=== PATIENT | female | born 1945 | race African-American/Black ===

== ENCOUNTER → 2017-10-01 | Outpatient (CLI) | payer OTHER ==
[~2017-10-01] MED LIST: ACETAMINOPHEN650 M1 PEG; ACIDOPHILUS1 EAC1 PEG; ALLOPURINOL300 MG PEG; AMLODIPINE BESY10 MG PEG; ASPIR 8181 MG PEG; ATIVAN0.5 MG PO; ATROVENT HFA12.9 GM; BISCOLAX10 MG PR; CALCIDOL8000 UNIT/ PEG; CEFEPIME-D1 GM/50 ML IVP; CHLORDIAZEPOXID25 MG PEG; CHLORDIAZEPOXIDE5 MG PEG; CLONIDINE HCL0.1 MG PEG; DIABETISOURCE PEG; ENULOSE10 GM/15 M PEG; EXCEDRIN EXTRA1 EAC1 PEG; FAMOTIDINE20 MG PEG; FLECTOR1 EACH TOP; HEPARIN SO5000 UNIT3 SQ; HUMULIN R100 UNIT/2; HYDRALAZINE HCL25 MG PO; IPRAT-ALBUT 0.5-3 ML INH; LORATADINE10 MG PEG; LORAZEPAM0.5 MG PO; MULTIVITAL PEG; NOVOLOG100 UNIT/1; POLYETHYLENE GL17 GM PO; PROMETHAZINE HC25 M1 PEG; SANTYL OINTMENT TOP; SIMETHICONE80 MG PEG; TRAZODONE HCL50 MG PO; TYLENOL WITH C1 EACH PO; ULTRAM 50MG50 MG PO; VANCOMYCIN HCL500 MG IV; ZOFRAN ODT4 MG PEG; [UNRECOGNIZED DRUG - REMARK]
[2017-10-09 12:15] LABS: ANION GAP 12.8 mmol/L (8-16); BLOOD UREA NITROGEN 28 mg/dL (7-26); BUN/CREATININE RATIO 47 (6-25); CALCIUM 9.5 mg/dL (8.4-10.2); CARBON DIOXIDE 22 mmol/L (22-29); CHLORIDE 108 mmol/L (98-107); EST GLOMERULAR FILTRATION RATE > 60 ML/MIN (60-); GLUCOSE 127 mg/dL (74-118); POTASSIUM 4.8 mmol/L (3.5-5.1); SODIUM 138 mmol/L (136-145)
[2017-10-09 12:16] LABS: BASOPHILS % 0.3 % (0.0-1.0); EOSINOPHILS # (AUTO) 0.7 (0.0-0.4); EOSINOPHILS % 8.6 % (0.0-6.0); HEMATOCRIT 35.3 % (34.2-44.1); HEMOGLOBIN 11.5 g/dL (12.0-16.0); LYMPHOCYTES # (AUTO) 2.9 (1.0-3.2); LYMPHOCYTES % 33.1 % (18.0-39.1); MEAN CORPUSCULAR HEMOGLOBIN 26.6 pg (28-32); MEAN CORPUSCULAR HGB CONC 32.6 g/dL (31-35); MEAN CORPUSCULAR VOLUME 81.7 fL (81-99); MONOCYTES # (AUTO) 0.4 (0.2-0.8); MONOCYTES % 4.5 % (4.4-11.3); NEUTROPHILS # (AUTO) 4.6 (2.1-6.9); NEUTROPHILS % 53.1 % (38.7-80.0); PLATELET COUNT 195 x10e3/uL (140-360); RED BLOOD COUNT 4.32 x10e6/uL (3.6-5.1); RED CELL DISTRIBUTION WIDTH 16.2 % (11.7-14.4)
== END ==
LOC: NPA 13:00
DX: R69 Illness, unspecified (principal)
CPT/HCPCS: 36415; 80048; 85025

== ENCOUNTER → 2017-11-12 | Outpatient (CLI) | payer OTHER ==
[~2017-11-12] MED LIST changes: +RISPERDAL1 MG PO; +SERTRALINE HCL50 MG PO; +ZYVOX600 MG PO
== END ==
LOC: NPA 10:18
DX: Z02.89 Encounter for other administrative examinations (principal)
CPT/HCPCS: 87071; 87186; 87205

== ENCOUNTER → 2017-11-17 | Outpatient (CLI) | payer OTHER ==
[2017-11-17 17:28] LABS: BASOPHILS # (AUTO) 0.1 (0.0-0.1); BASOPHILS % 0.4 % (0.0-1.0); EOSINOPHILS # (AUTO) 0.6 (0.0-0.4); EOSINOPHILS % 5.5 % (0.0-6.0); HEMATOCRIT 28.9 % (34.2-44.1); HEMOGLOBIN 8.9 g/dL (12.0-16.0); LYMPHOCYTES # (AUTO) 3.1 (1.0-3.2); LYMPHOCYTES % 28.1 % (18.0-39.1); MEAN CORPUSCULAR HEMOGLOBIN 25.9 pg (28-32); MEAN CORPUSCULAR HGB CONC 30.8 g/dL (31-35); MONOCYTES # (AUTO) 0.7 (0.2-0.8); MONOCYTES % 6.2 % (4.4-11.3); NEUTROPHILS # (AUTO) 6.6 (2.1-6.9); NEUTROPHILS % 59.4 % (38.7-80.0); PLATELET COUNT 260 x10e3/uL (140-360); RED BLOOD COUNT 3.44 x10e6/uL (3.6-5.1); RED CELL DISTRIBUTION WIDTH 17.1 % (11.7-14.4)
[2017-11-17 17:37] LABS: ANION GAP 12.3 mmol/L (8-16); BLOOD UREA NITROGEN 21 mg/dL (7-26); BUN/CREATININE RATIO 40 (6-25); CALCIUM 9.3 mg/dL (8.4-10.2); CARBON DIOXIDE 26 mmol/L (22-29); CHLORIDE 107 mmol/L (98-107); CREATININE, SERUM 0.52 mg/dL (0.57-1.11); EST GLOMERULAR FILTRATION RATE > 60 ML/MIN (60-); GLUCOSE 129 mg/dL (74-118); POTASSIUM 4.3 mmol/L (3.5-5.1); SODIUM 141 mmol/L (136-145)
== END ==
LOC: NPA 11:30
DX: Z02.89 Encounter for other administrative examinations (principal)
CPT/HCPCS: 36415; 80048; 85025

== ENCOUNTER 2017-11-19 07:50 | Emergency (ER) | payer MEDICARE, OTHER ==
[~2017-11-19] VITALS: Ht 170.2 cm; Wt 61.2 kg
[~2017-11-19 07:50] MED LIST changes: -RISPERDAL1 MG PO; -SERTRALINE HCL50 MG PO; -ZYVOX600 MG PO
--- OUTSIDE RECORDS SUMMARY | 2017-11-19 07:52 | XMS REPORT ---
[facility] Address Unknown Phone Unavailable Care Team Providers Care Catalogue Maker Name Role Phone ROXY ELIZABETH Unavailable Unavailable Problems This patient has no known problems. Allergies, Adverse Reactions, Alerts This patient has no known allergies or adverse reactions. Medications This patient has no known medications. Results Test Description Test Time Test Comments Text Results Atomic Results Result Comments CHEST SINGLE (PORTABLE) [facility] [address] [address] Patient Name: RONNIE HAQ MR #: [id number] : 1945 Age/Sex: 72/F Req #: [id number] Adm Physician: ROXY ELIZABETH MD Ordered by: AMIRA TONEY MD Report #: [id number] Location: ICU Room/Bed: ICU [facility] Procedure: [id number] DX/CHEST SINGLE (PORTABLE) Exam Date: 07/02/17 Exam Time: 1542 REPORT STATUS: Signed PROCEDURE: A single AP view of the chest. COMPARISON: [facility], DX, CHEST SINGLE (PORTABLE), 06/29/2017, 5:34. INDICATIONS: HYPOXIA FINDINGS: Lines/tubes: Tracheostomy tube in adequate position with the distal tip approximately 5.6 cm proximal to the johnson. Lungs: The right lung has reexpanded. Increased density in the mid to lower hemithorax bilaterally suggestive of consolidations as demonstrated on recent CT chest. Pleura: There is no pneumothorax. Bilateral pleural effusions. Heart and mediastinum: The heart and the mediastinum are unremarkable. Calcified left hilar lymph node. Bones: No acute bony abnormality. IMPRESSION: 1. Bilateral pleural effusions and bilateral lower lobe consolidations. 2. Interval reexpansion of the right lung. Tegan Ivy M.D. Dictated by: Tegan Ivy M.D. on 07/02/2017 at 15:56 Electronically approved by: Tegan Ivy M.D. on 07/02/2017 at 15: 56 Dictated By: MARTIN IVY MD, MD 55 Transcribed By: PAULO on 07/02/171555 COPY TO: AMIRA TONEY MD CT CHEST W [address] [place] [address] Patient Name: RONNIE HAQ MR #: [id number] : 1945 Age/Sex: 72/F Req #: [id number] Adm Physician: ROXY ELIZABETH MD Ordered by: QUYNH GA MD Report #: [id number] Location: ICU Room/Bed: [place] [address] Procedure: [id number] CT/CT CHEST W Exam Date: 06/30/17 Exam Time: 1620 REPORT STATUS: Signed PROCEDURE: CT scan of the chest abdomen and pelvis WITH intravenous contrast, using standard protocol. TECHNIQUE: The chest abdomen and pelvis was scanned utilizing a multidetector helical scanner from the lung apex through the level of the lesser trochanters after the IV administration of 100 cc of Isovue 370. Coronal and sagittal multiplanar reformations were obtained. COMPARISON: CT chest abdomen and pelvis 05/17/2017. INDICATIONS: PNEUMONIA, URINARY TRACT INFECTION, R/O OSTEOMYLITIS FINDINGS: Lines/ tubes: A tracheostomy tube tip terminates in the upper trachea. Balloon retention gastrostomy catheter terminates within the gastric body.. Lungs and Airways: Groundglass opacities with diffuse tree in bud nodules within the anterior right upper lobe. Groundglass opacities and consolidations within the lower lobes, left greater than right. small bilateral pleural effusions, left larger than right. Pleura: Small bilateral pleural effusions, left larger than right, without pleural enhancement. Heart and mediastinum: No focal thyroid abnormality. Atherosclerotic calcification of the aortic arch and great vessel origins without ectasia or aneurysmal dilatation. Pulmonary outflow tract is of normal caliber. This study was not optimized for detection of pulmonary embolic disease; however, the main pulmonary artery, proximal right and left pulmonary arteries are patent, without filling defect. No axillary or mediastinal lymphadenopathy. There are multiple enlarged right hilar nodes, without significant interval change relative to 05/17/2017. Soft tissues: No focal soft tissue abnormalities of the chest. Abdomen: Liver: No focal hepatic lesion or intrahepatic biliary ductal dilatation. The gallbladder is normal. Spleen: Calcified granuloma. No splenomegaly. Pancreas: No focal mass or ductal dilatation. Adrenal glands: No nodules. Kidneys: Symmetric renal parenchymal enhancement. Subcentimeter hypoattenuating lesions in the right kidney left kidney, too small to further characterize though likely represent small cysts. No calculi or hydronephrosis. Pelvic organs: The urinary bladder is collapsed around a Pierre catheter. The uterus is not identified and has presumably been removed. The pelvic contents are otherwise poorly evaluated secondary to extensive streak artifact from right hip prosthesis. GI tract: Rectal tube is in place. The sigmoid colon and rectum are poorly evaluated secondary to streak artifact. The large bowel otherwise shows no distention or wall thickening. The appendix is poorly visualized. Gastrostomy catheter terminates within the gastric body. There is no small bowel dilatation to suggest obstruction. Lymph nodes: No pelvic sidewall, retroperitoneal, or mesenteric lymphadenopathy. Blood vessels: Extensive aortoiliac atherosclerotic calcification without aneurysmal dilatation. Portal vein, splenic vein, and central superior mesenteric vein are patent. Peritoneum/ retroperitoneum: No pneumoperitoneum. Small gas focus along the left rectus musculature is of uncertain etiology and may relate to subcutaneous medication administration. No ascites. Bones: Chronic erosive changes of the low sacrum and coccyx with overlying decubitus ulcer. The bones are diffusely osteopenic. 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 Status post total right hip replacement with unchanged position of surgical hardware. Advanced multilevel degenerative disc changes of the lumbar spine. No osseous destructive lesions. IMPRESSION: Bilateral lower lobe consolidation likely related to aspiration with associated small parapneumonic effusions, left greater than right. Groundglass and tree in bud opacities in the right upper lobe are also presumably related to aspiration. 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 Atherosclerotic vascular disease. Dictated by: Homer Raymond M.D. on 06/30/2017 at 17:09 Electronically approved by: Homer Raymond M.D. on 06/30/2017 at 17:09 Dictated By: HOMER RAYMOND MD 08 Transcribed By: PAULO on 06/30/171708 COPY TO: QUYNH GA MD CT ABDOMEN/PELVIS W [place] [address] Patient Name: RONNIE HAQ MR #: [id number] : 1945 Age/Sex: 72/F Req #: [id number] Adm Physician: ROXY ELIZABETH MD Ordered by: QUYNH GA MD Report #: [id number] Location: ICU Room/Bed: ICU [facility] Procedure: CT/CT ABDOMEN/PELVIS W Exam Date: 06/30/17 Exam Time: 1620 REPORT STATUS: Signed PROCEDURE: CT ABDOMEN AND PELVIS WITH CONTRAST INDICATIONS: PNEUMONIA, URINARY TRACT INFECTION, R/O OSTEOMYLITIS FINDINGS: See impression IMPRESSION: For full dictated report refer to the examination "CT CHEST W." also from 06/30/2017. Dictated by: Homer Raymond M.D. on 06/30/2017 at 17:20 Electronically approved by: Homer Raymond M.D. on 06/30/2017 at 17:20 Dictated By: HOMER RAYMOND MD 19 Transcribed By: PAULO on 06/30/17 172 COPY TO: QUYNH GA MD CHEST SINGLE (PORTABLE) [place] [address] Patient Name: RONNIE HAQ MR #: [id number] : 1945 Age/Sex: 72/F Req #: [id number] Adm Physician: ROXY ELIZABETH MD Ordered by: TONY JAMESON MD Report #: [id number] Location: ICU Room/Bed: [place] [address] _ Procedure: [id number] DX/CHEST SINGLE (PORTABLE) Exam Date : 06/30/17 Exam Time: 0510 REPORT STATUS: Signed EXAM: CHEST SINGLE (PORTABLE), AP 1 view DATE: 06/30/2017 5:00 AM Time stamp on exam: 0522 hours INDICATION: Pneumonia COMPARISON: AP view of the chest June 29, 2017 FINDINGS: LINES/TUBES: None LUNGS: There is no longer opacification of the right lung. Bibasilar atelectasis. PLEURA: Small bilateral pleural effusions. HEART AND MEDIASTINUM: The heart is within normal size limits. Prominent central pulmonary vessels. BONES AND SOFT TISSUES: No acute findings. IMPRESSION: Interval aeration of the right lung. Small bilateral pleural effusions. Signed by: Dr. Dallas Gracia M.D. on 06/30/2017 6:53 AM Dictated By: DALLAS GRACIA MD 2 Transcribed By: SAHIL on 06/30/17652 COPY TO: TONY JAMESON MD CHEST SINGLE (PORTABLE) [place] [address] Patient Name: RONNIE HAQ MR #: [id number] : 1945 Age/Sex: 72/F Req #: [id number] Adm Physician: ROXY ELIZABETH MD Ordered by: TONY JAMESON MD Report #: [id number] Location: ICU Room/Bed: [place] [address] _ Procedure: [id number] DX/CHEST SINGLE (PORTABLE) Exam Date : 06/29/17 Exam Time: 0505 REPORT STATUS: Signed EXAM: CHEST SINGLE (PORTABLE), AP 1 view DATE: 06/29/2017 5:00 AM Time stamp on exam: 0534 hours INDICATION: Pneumonia COMPARISON: AP view of the chest June 27, 2017 FINDINGS: LINES/TUBES: Stable tracheostomy LUNGS: Interval complete opacification of the right lung. Left lower lobe atelectasis. PLEURA: Small left pleural effusion. HEART AND MEDIASTINUM: Deviation to the right BONES AND SOFT TISSUES: No acute findings. IMPRESSION: Interval complete opacification of the right lung , likely secondary to central mucous plug or aspiration Signed by: Dr. Dallas Gracia M.D. on 06/29/2017 6:43 AM Dictated By: DALLAS GRACIA MD 2 Transcribed By: SAHIL on 06/29/17642 COPY TO: TONY JAMESON MD US CHEST (INCL MEDIASTINUM) [place] [address] Patient Name: RONNIE HAQ MR #: [id number] : 1945 Age/Sex: 72/F Req #: [id number] Adm Physician: ROXY ELIZABETH MD Ordered by: AMIRA TONEY MD Report #: [id number] Location: ICU Room/Bed: [place] [address] Procedure: [id number] US/US CHEST (INCL MEDIASTINUM) Exam Date: 06/28/17 Exam Time: 1127 REPORT STATUS: Signed EXAM: US CHEST (INCL MEDIASTINUM) INDICATION: S pleural effusion COMPARISON: CT abdomen and pelvis 05/17/2017 TECHNIQUE: Transverse and sagittal images were performed of the bilateral chest. FINDINGS: Mild left pleural effusion. No right pleural effusion. IMPRESSION: 1. Mild left pleural effusion. 2. No right pleural effusion. Signed by: Dr. Aly Silver M.D. on 06/28/2017 12:30 PM Dictated By: ALY SILVER MD 1230 Transcribed By: SAHIL on 06/28/17 123 COPY TO: AMIRA TONEY MD CHEST SINGLE (PORTABLE) [place] [address] Patient Name: RONNIE HAQ MR #: [id number] : 1945 Age/Sex: 72/F Req #: [id number] [facility] Physician: Ordered by: RUBEN VELEZ MD Report #: [id number] Location: ER Room/Bed: Procedure: [id number] DX/CHEST SINGLE (PORTABLE) Exam Date: 06/27/17 Exam Time: 1420 REPORT STATUS: Signed PROCEDURE: CHEST SINGLE (PORTABLE) COMPARISON: CT chest 05/17/17, chest x-ray 05/15/17 INDICATIONS: PNEUMONIA, PLEURAL EFFUSION FINDINGS: LINES AND TUBES: Tracheostomy tube stable in position. A right PICC line has been removed. LUNGS: Chronic atelectasis of the right lung is re- demonstrated with blunting of the lateral costophrenic angle suggestive of associated pleural effusion. The amount of airspace disease in the right upper lobe has increased. Haziness of the left lung base is similar suggestive of pleural effusion and atelectasis. Aerated lung shows no evidence of infiltrate. CARDIAC: Top normal in size and stable. MEDIASTINUM: Normal. PLEURA: No pneumothorax. BONES: No focal osseous lesions. Chronic elevation of the right shoulder is stable. There are stable degenerative changes of the left shoulder. OTHER: Negative. CONCLUSION: 1. Chronic bibasilar atelectasis, right lung greater than left, with bilateral pleural effusions. 2. Increasing airspace disease in the right upper lobe could be due to atelectasis or pneumonia. 3. Stable tracheostomy tube. Dictated by: Farshad Narayanan M.D. on 06/27/2017 at 14:50 Electronically approved by: Farshad Narayanan M.D. on 06/27/2017 at 14:50 Dictated By: FARSAHD NARAYANAN MD 1450 Transcribed By : PAULO on 06/27/17 1450 COPY TO: RUBEN VELEZ MD
[2017-11-19] MEDS ORDERED: CEFEPIME-D1 GM/50 ML IVP (08:33)
[2017-11-19] MEDS ORDERED: ZYVOX600 MG PO (08:33)
[2017-11-19] MEDS ORDERED: RISPERDAL1 MG PO (08:33)
[2017-11-19] MEDS ORDERED: NOVOLOG100 UNIT/1 (08:33)
[2017-11-19] MEDS ORDERED: SERTRALINE HCL50 MG PO (08:33)
[2017-11-19] MEDS ORDERED: DIATRIZOATE MEGL/DIATRIZOA SOD 30 ML BTL PO ONE (09:07)
--- NOTE | 2017-11-19 09:39 | Diagnostic Imaging Report ---
PROCEDURE:X-RAY ABDOMEN - KUB COMPARISON:None. INDICATIONS:GASTRIC TUBE PLACEMENT FINDINGS: There is a gastric tube overlying the upper abdomen. Contrast is present within the stomach. There is no evidence of free air. No acute osseous abnormalities are present. Diffuse skeletal deformity is present. Partially visualized right femoral prosthesis. CONCLUSION: Contrast present within the stomach. Edenilson Covarrubias D.O. Dictated by: Edenilson Covarrubias D.O. on 11/19/2017 at 9:48 Electronically approved by: Edenilson Covarrubias D.O. on 11/19/2017 at 9:48
[2017-11-19 10:10] VITALS: BP 108/53
== END 2017-11-19 11:05 | disposition home or self-care (01) ==
LOC: ER 07:50
DX: Z43.1 Encounter for attention to gastrostomy (principal); L89.159 Pressure ulcer of sacral region, unspecified stage; L89.619 Pressure ulcer of right heel, unspecified stage; Z93.0 Tracheostomy status
CPT/HCPCS: 74018; 94002; 99284

== ENCOUNTER → 2017-11-24 | Outpatient (CLI) | payer OTHER ==
[~2017-11-24] MED LIST changes: +RISPERDAL1 MG PO; +SERTRALINE HCL50 MG PO; +ZYVOX600 MG PO
[2017-11-24 17:58] LABS: BLOOD UREA NITROGEN 10 mg/dL (7-26); BUN/CREATININE RATIO 18 (6-25); CALCIUM 9.3 mg/dL (8.4-10.2); CARBON DIOXIDE 22 mmol/L (22-29); CHLORIDE 110 mmol/L (98-107); CREATININE, SERUM 0.55 mg/dL (0.57-1.11); EST GLOMERULAR FILTRATION RATE > 60 ML/MIN (60-); GLUCOSE 96 mg/dL (74-118); SODIUM 141 mmol/L (136-145)
[2017-11-24 18:05] LABS: BASOPHILS # (AUTO) 0.1 (0.0-0.1); BASOPHILS % 0.4 % (0.0-1.0); EOSINOPHILS # (AUTO) 0.4 (0.0-0.4); EOSINOPHILS % 3.7 % (0.0-6.0); HEMATOCRIT 30.5 % (34.2-44.1); HEMOGLOBIN 9.7 g/dL (12.0-16.0); LYMPHOCYTES # (AUTO) 2.4 (1.0-3.2); LYMPHOCYTES % 20.6 % (18.0-39.1); MEAN CORPUSCULAR HEMOGLOBIN 26.8 pg (28-32); MEAN CORPUSCULAR HGB CONC 31.8 g/dL (31-35); MEAN CORPUSCULAR VOLUME 84.3 fL (81-99); MONOCYTES # (AUTO) 0.5 (0.2-0.8); MONOCYTES % 4.4 % (4.4-11.3); NEUTROPHILS # (AUTO) 8.3 (2.1-6.9); NEUTROPHILS % 70.6 % (38.7-80.0); PLATELET COUNT 253 x10e3/uL (140-360); RED BLOOD COUNT 3.62 x10e6/uL (3.6-5.1); RED CELL DISTRIBUTION WIDTH 18.1 % (11.7-14.4)
== END ==
LOC: NPA 12:22
DX: Z02.89 Encounter for other administrative examinations (principal)
CPT/HCPCS: 36415; 80048; 85025

== ENCOUNTER → 2017-12-01 | Outpatient (CLI) | payer OTHER ==
[2017-12-01 18:13] LABS: BASOPHILS % 0.4 % (0.0-1.0); EOSINOPHILS # (AUTO) 0.3 (0.0-0.4); EOSINOPHILS % 2.5 % (0.0-6.0); HEMATOCRIT 35.1 % (34.2-44.1); HEMOGLOBIN 10.8 g/dL (12.0-16.0); LYMPHOCYTES # (AUTO) 2.3 (1.0-3.2); LYMPHOCYTES % 23.5 % (18.0-39.1); MEAN CORPUSCULAR HEMOGLOBIN 28.5 pg (28-32); MEAN CORPUSCULAR HGB CONC 30.8 g/dL (31-35); MEAN CORPUSCULAR VOLUME 92.6 fL (81-99); MONOCYTES # (AUTO) 0.9 (0.2-0.8); MONOCYTES % 8.7 % (4.4-11.3); NEUTROPHILS # (AUTO) 6.3 (2.1-6.9); NEUTROPHILS % 64.2 % (38.7-80.0); PLATELET COUNT 397 x10e3/uL (140-360); RED BLOOD COUNT 3.79 x10e6/uL (3.6-5.1); RED CELL DISTRIBUTION WIDTH 15.9 % (11.7-14.4)
[2017-12-01 18:17] LABS: ANION GAP 11.1 mmol/L (8-16); BLOOD UREA NITROGEN 13 mg/dL (7-26); BUN/CREATININE RATIO 21 (6-25); CALCIUM 9.2 mg/dL (8.4-10.2); CARBON DIOXIDE 23 mmol/L (22-29); CHLORIDE 110 mmol/L (98-107); CREATININE, SERUM 0.61 mg/dL (0.57-1.11); EST GLOMERULAR FILTRATION RATE > 60 ML/MIN (60-); GLUCOSE 117 mg/dL (74-118); POTASSIUM 4.1 mmol/L (3.5-5.1); SODIUM 140 mmol/L (136-145)
== END ==
LOC: NPA 12:00
DX: Z02.89 Encounter for other administrative examinations (principal)
CPT/HCPCS: 36415; 80048; 85025

== ENCOUNTER 2017-12-25 20:16 | Inpatient (IN) | payer MEDICARE, OTHER ==
[~2017-12-25] VITALS: Ht 170.2 cm; Wt 59.9 kg
--- OUTSIDE RECORDS SUMMARY | 2017-12-25 20:19 | XMS REPORT | Continuity of Care Document ---
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 No 06/28/17 9:14pm If yes, is advance directive on file with [facility]? No 06/28/17 9:14pm If not on file with [facility] will patient provide a copy? No 06/28/17 9:14pm Do you have a Directive to Physician? No 11/19/17 8:27am Do you have a Medical Power of Terrazzo Finisher? No 11/19/17 8:27am Do you have an out of hospital Do Not Resuscitate Order? No 11/19/17 8:27am Do you have any special needs we should be aware of? No 11/19/17 8:27am Do you have a support person here with you today? No 11/19/17 8:27am Did patient receive Notice of Privacy Practices? Yes 11/19/17 8:27am Did patient receive patient rights and responsibilities? Yes 11/19/17 8:27am Problems Medical Problem Onset Date Status Anemia Unknown Pneumonia Unknown Sepsis Unknown UTI (urinary tract infection) Unknown Medications Current Home Medications Medication Dose Units Route Directions Days Qty Instructions Start Date Acetaminophen 650 Mg Tablet 1 Tab Peg Tube Every 4 Hours Acetaminophen With Codeine (Tylenol With Codeine #3 Tablet) 1 Each Tablet 300 Mg Oral Every 6 Hours as needed for Pain Allopurinol 300 Mg Tablet 300 Mg Peg Tube Daily 30 Tab Amlodipine Besylate 10 Mg Tablet 10 Mg Peg Tube Daily 30 Tab Aspirin (Aspir 81) 81 Mg Tablet.dr 1 Tab Peg Tube Daily Bisacodyl (Biscolax) 10 Mg Supp.rect 10 Mg Rectal As Needed Cefepime Hcl/D5w (Cefepime-Dextrose 1 Gm/50 Ml) 1 Gm/50 Ml Piggyback 2 Gm Iv Push Daily Cefepime Hcl/D5w (Cefepime-Dextrose 1 Gm/50 Ml) 1 Gm/50 Ml Piggyback 1 Gm Iv Push Twice A Day Chlordiazepoxide Hcl 25 Mg Capsule 25 Mg Peg Tube Bedtime as needed for Anxiety Diclofenac Epolamine (Flector) 1 Each Adh..patch 1 Dose Topically Daily Ergocalciferol (Vitamin D2) (Calcidol) 8,000 Unit/1 Ml Drops 50,000 Units Peg Tube Every Famotidine 20 Mg Tab 20 Mg Peg Tube Twice A Day 30 Tab Heparin Sodium,Porcine/Pf (Heparin Sod 5,000 Unit/ 0.5 Ml) 5,000 Unit/0.5 Ml Vial 1 Dose Sub-Q Twice A Day Hydralazine Hcl 25 Mg Tab 25 Mg Oral Four Times Daily Insulin Aspart (Novolog) 100 Unit/1 Ml Cartridge Ipratropium/Albuterol Sulfate (Iprat-Albut 0.5-3(2.5) Mg/3 Ml) 3 Ml Ampul.neb 1 Dose Inhalation Every 6 Hours Lactobacillus Acidophilus (Acidophilus) 1 Each Tab.chew 1 Tab Peg Tube Daily Lactulose (Enulose) 10 Gm/15 Ml Solution 30 Ml Peg Tube Twice A Day as needed for Constipation Linezolid (Zyvox) 600 Mg Tablet 600 Mg Oral Daily 30 Tab Loratadine 10 Mg Tablet 10 Mg Peg Tube Daily 30 Tab Lorazepam 0.5 Mg Tablet 0.5 Mg Oral Every 6 Hours Lorazepam (Ativan*) 0.5 Mg Tablet 0.5 Mg Oral Twice A Day as needed for Anxiety 60 Tab Multivital 1 Tab Peg Tube Daily Ondansetron (Zofran Odt) 4 Mg Tab.rapdis 8 Mg Peg Tube Every 8 Hours Polyethylene Glycol 3350 17 Gm Powd.pack 17 Gm Oral Twice A Day Promethazine Hcl 25 Mg Tablet 25 Mg Peg Tube Every 6 Hours as needed for Nausea Risperidone (Risperdal) 1 Mg Tablet 0.25 Mg Oral Bedtime 30 Tab Santyl Ointment 1 Dose Topically Daily Sertraline Hcl 50 Mg Tablet 50 Mg Oral Bedtime 30 Tab Simethicone 80 Mg Chew 80 Mg Peg Tube Every 6 Hours 30 Tab Tramadol Hcl (Ultram 50MG*) 50 Mg Tab 50 Mg Oral Every 6 Hours as needed for Pain Trazodone Hcl 50 Mg Tablet 75 Mg Oral Bedtime 30 Tab Past Home Medications Medication Directions Ordered Status Aspirin/Acetaminophen/Caffeine (Excedrin Extra Strength Caplet) 1 Each Tablet, 1 Tab Peg Tube Every 8 Hours Discontinued Chlordiazepoxide Hcl 5 Mg Capsule, 1 Cap Peg Tube Bedtime Discontinued Clonidine Hcl 0.1 Mg Tablet, 1 Tab Peg Tube Daily Discontinued Diabetisource , 70 Ml Peg Tube Daily Discontinued Insulin Aspart (Novolog) 100 Unit/1 Ml Cartridge, Discontinued Insulin Regular, Human (Humulin R) 100 Unit/1 Ml Vial, Discontinued Ipratropium Harmony (Atrovent Hfa) 12.9 Gm Hfa.aer.ad, Discontinued Vancomycin Hcl 500 Mg Vial, 750 Mg Intraven Twice A Day Discontinued Family History Relationship Condition Age at Onset Recorded Date/Time 33 Father Family history of hypertension Unknown 06/27/2017 9:18pm 33 Mother Family history of hypertension Unknown 06/27/2017 9:18pm 09 Sister Family history of hypertension Unknown 06/27/2017 9:18pm Unable To Assess Family history of hypertension Unknown 06/27/2017 9:18pm Social History Social History Problem Response Recorded Date/Time Onset Date Status Hx Psychiatric Problems Y - anxiety 06/28/2017 9:14pm Not Applicable Not Applicable Hx Eating Disorder No 06/28/2017 9:14pm Not Applicable Not Applicable Hx Substance Use Disorder No 06/28/2017 9:14pm Not Applicable Not Applicable Hx Depression No 06/28/2017 9:14pm Not Applicable Not Applicable Hx Alcohol Use No 06/28/2017 9:14pm Not Applicable Not Applicable Hx Substance Use Treatment No 06/28/2017 9:14pm Not Applicable Not Applicable Hx Physical Abuse No 06/28/2017 9:14pm Not Applicable Not Applicable Smoking Status Start Date Stop Date Never Smoker Hospital Discharge Instructions No hospital discharge instruction information available. Plan of Care Discharge Date 11/19/17 11:05am Disposition DIS TO INTERMEDIATE BED Condition at Discharge Stable Instructions/Education Provided GI Tube Care Forms Provided Work/School Excuse Prescriptions See Medication Section Functional Status No functional status information available. Allergies, Adverse Reactions, Alerts Allergen Type Severity Reaction Status Last Updated NSAIDS (Non-Steroidal Anti-Inflamma Allergy Unknown Active 05/14/17 Pine[place] Allergy Unknown Active 05/14/17 [place] Allergy Unknown Active 05/14/17 mushroom Allergy Unknown Active 05/14/17 Immunizations No immunization information available. Vital Signs Acute Vital Signs Vital Response Date/Time Temperature (Fahrenheit) 97.9 degrees F (97.6 - 99.5) 07/03/2017 7:50pm Pulse Pulse Rate (adult) 61 bpm (60 - 90) 11/19/2017 10:10am Respiratory Rate 16 bpm (12 - 24) 11/19/2017 10:10am Blood Pressure 108/53 mm Hg 11/19/2017 10:10am Height 5 ft 7 in 11/19/2017 7:51am Weight 135 lb 11/19/2017 7:51am Body Mass Index 21.1 kg/m^2 11/19/2017 7:51am Results Laboratory Results Test Name Result Units Flags Reference Collection Date/Time Result Date/ Time Comments Urine Yeast FEW H NONE 05/14/2017 8:41am 05/14/2017 10:52am Vitamin B12 Level > 2000 pg/mL H 213-816 05/14/2017 9:30am 05/14/2017 4: 10pm Thyroid Stimulating Hormone (TSH) 0.176 uIU/mL L 0.350-4.940 05/14/2017 9 :30am 05/14/2017 10:16am Erythrocyte Sedimentation Rate 92 mm/hr H 0-20 06/30/2017 5:15pm 2016 6:18pm Prothrombin Time 14.8 seconds H 11.9-14.5 06/27/2017 3:15pm 06/27/2017 3 :46pm Prothromb Time International Ratio 1.10 06/27/2017 3:15pm 2016 3:46pm Oral Anticoagulant Therapy INR Values: 1. Low Intensity Therapy 1.5 - 2.0 2. Moderate Intensity Therapy 2.0 - 3.0 3. High Intensity Therapy(1) 2.5 - 3.5 4. High Intensity Therapy(2) 3.0 - 4.0 5. Panic Value INR > 5.0 Activated Partial Thromboplast Time 40.8 seconds H 23.8-35.5 06/27/2017 3 :15pm 06/27/2017 3:46pm Urine Color YELLOW YELLOW 06/27/2017 3:30pm 06/27/2017 3:35pm Urine Clarity CLOUDY H CLEAR 06/27/2017 3:30pm 06/27/2017 3:35pm Urine Specific [place] 1.020 1.010-1.025 06/27/2017 3:30pm 2016 3:35pm Urine pH 5 5 - 7 06/27/2017 3:30pm 06/27/2017 3:35pm Urine Leukocyte Esterase 2+ H NEGATIVE 06/27/2017 3:30pm 06/27/2017 3: 35pm Urine Nitrite NEGATIVE NEGATIVE 06/27/2017 3:30pm 06/27/2017 3:35pm Urine Protein 1+ H NEGATIVE 06/27/2017 3:30pm 06/27/2017 3:35pm Urine Glucose (UA) NEGATIVE NEGATIVE 06/27/2017 3:30pm 06/27/2017 3: 35pm Urine Ketones NEGATIVE NEGATIVE 06/27/2017 3:30pm 06/27/2017 3:35pm Urine Urobilinogen 4 mg/dL H 0.2 - 1 06/27/2017 3:30pm 06/27/2017 3: 35pm Urine Bilirubin 1+ H NEGATIVE 06/27/2017 3:30pm 06/27/2017 3:35pm Urine Blood 1+ H NEGATIVE 06/27/2017 3:30pm 06/27/2017 3:35pm Urine WBC >50 /HPF H 0-5 06/27/2017 3:30pm 06/27/2017 3:45pm Urine RBC 11-20 /HPF H 0-5 06/27/2017 3:30pm 06/27/2017 3:45pm Urine Bacteria MANY /HPF H NONE 06/27/2017 3:30pm 06/27/2017 3:45pm Urine Epithelial Cells FEW /LPF NONE 06/27/2017 3:30pm 06/27/2017 3: 45pm Urine Mucus MANY H RARE 06/27/2017 3:30pm 06/27/2017 3:45pm Bedside Glucose 126 mg/dL H 70-120 07/03/2017 6:40pm 07/03/2017 7:32pm Meter ID: [id number] Lactic Acid Level 15.0 MG/DL 4.5-19.8 06/27/2017 1:35pm 06/27/2017 3: 12pm Iron Level 23 ug/dL L 50-170 06/27/2017 3:18pm 06/27/2017 5:19pm Total Iron Binding Capacity 137 ug/dL L 261-478 06/27/2017 3:18pm 2016 5:19pm Percent Iron Saturation 17 % 15-50 06/27/2017 3:18pm 06/27/2017 5:19pm Transferrin 98 mg/dL L 180-382 06/27/2017 3:18pm 06/27/2017 5:19pm Total Bilirubin 0.2 mg/dL 0.2-1.2 06/27/2017 3:18pm 06/27/2017 3:57pm Aspartate Amino Transf (AST/SGOT) 32 IU/L 5-34 06/27/2017 3:18pm 2016 3:57pm Alanine Aminotransferase (ALT/SGPT) 26 IU/L 0-55 06/27/2017 3:18pm 3:57pm Total Protein 6.7 g/dL 6.5-8.1 06/27/2017 3:18pm 06/27/2017 3:57pm Albumin 1.9 g/dL L 3.5-5.0 06/27/2017 3:18pm 06/27/2017 3:57pm Globulin 4.8 g/dL H 2.3-3.5 06/27/2017 3:18pm 06/27/2017 3:57pm Albumin/Globulin Ratio 0.4 L 0.8-2.0 06/27/2017 3:18pm 06/27/2017 3: 57pm Alkaline Phosphatase 85 IU/L 40-150 06/27/2017 3:18pm 06/27/2017 3: 57pm Creatine Kinase 9 IU/L L 29-168 06/27/2017 3:18pm 06/27/2017 3:57pm Creatine Kinase MB 0.60 ng/mL 0.00-5.00 06/27/2017 3:18pm 06/27/2017 4: 00pm Troponin I 0.009 ng/mL 0-0.300 06/27/2017 3:18pm 06/27/2017 4:00pm Vancomycin Level Trough 18.9 ug/mL *H 5.0-10.0 06/30/2017 5:15pm 2016 6:10pm Results called to Haley Willams RN at 1809 on 06/30/17 by Vadim Nolasco. RB OK. Arterial Blood pH 7.47 H 7.31-7.41 06/28/2017 4:00pm 06/28/2017 4: 32pm Arterial Blood Partial Pressure CO2 41 mmHg 41-51 06/28/2017 4:00pm 4:32pm Arterial Blood Partial Pressure O2 77 mmHg L 80-105 06/28/2017 4:00pm 4:32pm Arterial Blood HCO3 30 mmol/L H 23-28 06/28/2017 4:00pm 06/28/2017 4: 32pm Arterial Blood Base Excess 6.0 mmol/L H -2 - 3 06/28/2017 4:00pm 2016 4:32pm Arterial Blood Oxygen Saturation 96.0 % 95-98 06/28/2017 4:00pm 2016 4:32pm C-Reactive Protein 36.8 mg/L H 0.0-4.9 06/30/2017 5:15pm 07/01/2017 12: 23pm Performed at: - [facility] [address] [id number] [employer]: Connor Montero MD, Phone: [phone] Clostridium Difficile Toxin A & B NEGATIVE NEGATIVE 07/01/2017 7:00pm 07/02/2017 12:57pm Testing on stool aspirate specimens is outside heel gouger claims since specimen type not validated on this assay. White Blood Count 11.12 x10e3/uL H 4.8-10.8 11/17/2017 11:302017 5:34pm Red Blood Count 3.44 x10e6/uL L 3.6-5.1 11/17/2017 11:3011/17/2017 5: 34pm Hemoglobin 8.9 g/dL L 12.0-16.0 11/17/2017 11:3011/17/2017 5:34pm Hematocrit 28.9 % L 34.2-44.1 11/17/2017 11:3011/17/2017 5:34pm Mean Corpuscular Volume 84.0 fL 81-99 11/17/2017 11:11/17/2017 5: 34pm Mean Corpuscular Hemoglobin 25.9 pg L 28-32 11/17/2017 11:302017 5:34pm Mean Corpuscular Hemoglobin Concent 30.8 g/dL L 31-35 11/17/2017 11:3011/17/2017 5:34pm Red Cell Distribution Width 17.1 % H 11.7-14.4 11/17/2017 11:2017 5:34pm Platelet Count 260 x10e3/uL 140-360 11/17/2017 11:11/17/2017 5: 34pm Neutrophils (%) (Auto) 59.4 % 38.7-80.0 11/17/2017 11:3011/17/2017 5 :34pm Lymphocytes (%) (Auto) 28.1 % 18.0-39.1 11/17/2017 11:3011/17/2017 5 :34pm Monocytes (%) (Auto) 6.2 % 4.4-11.3 11/17/2017 11:11/17/2017 5: 34pm Eosinophils (%) (Auto) 5.5 % 0.0-6.0 11/17/2017 11:3011/17/2017 5: 34pm Basophils (%) (Auto) 0.4 % 0.0-1.0 11/17/2017 11:3011/17/2017 5: 34pm IM GRANULOCYTES % 0.4 % 0.0-1.0 11/17/2017 11:3011/17/2017 5:34pm Neutrophils # (Auto) 6.6 2.1-6.9 11/17/2017 11:3011/17/2017 5: 34pm Lymphocytes # (Auto) 3.1 1.0-3.2 11/17/2017 11:3011/17/2017 5: 34pm Monocytes # (Auto) 0.7 0.2-0.8 11/17/2017 11:3011/17/2017 5:34pm Eosinophils # (Auto) 0.6 H 0.0-0.4 11/17/2017 11:3011/17/2017 5: 34pm Basophils # (Auto) 0.1 0.0-0.1 11/17/2017 11:3011/17/2017 5:34pm Absolute Immature Granulocyte (auto 0.04 x10e3/uL 0-0.1 11/17/2017 11: 3011/17/2017 5:34pm Sodium Level 141 mmol/L 136-145 11/17/2017 11:3011/17/2017 5:39pm Potassium Level 4.3 mmol/L 3.5-5.1 11/17/2017 11:3011/17/2017 5: 39pm Chloride Level 107 mmol/L 98-107 11/17/2017 11:3011/17/2017 5:39pm Carbon Dioxide Level 26 mmol/L 22-29 11/17/2017 11:3011/17/2017 5: 39pm Anion Gap 12.3 mmol/L 8-16 11/17/2017 11:3011/17/2017 5:39pm Blood Urea Nitrogen 21 mg/dL 7-11/17/2017 11:3011/17/2017 5:39pm Creatinine 0.52 mg/dL L 0.57-1.11 11/17/2017 11:3011/17/2017 5:39pm BUN/Creatinine Ratio 40 H 6-25 11/17/2017 11:3011/17/2017 5:39pm Estimat Glomerular Filtration Rate > 60 ML/MIN 60- 11/17/2017 11:3011/17/2017 5:39pm Ranges were taken from the National Kidney Disease Education Program and the National Kid[employer] Foundation literature. Reference ranges: 60 or greater: Normal 16-59 (for 3 consecutive months): Chronic kidney disease 15 or less: Kidney failure Glucose Level 129 mg/dL H 74-118 11/17/2017 11:30am 11/17/2017 5:39pm Calcium Level 9.3 mg/dL 8.4-10.2 11/17/2017 11:30am 11/17/2017 5:39pm Microbiology Results Procedure Source Organism/Result Collection Date/Time Result Date/Time Result Status Urine Culture Urine,Catheterized JOSE RAFAEL TROPICALIS 05/14/2017 8:41am 03/2017 4:42am Final Wound Culture Buttock KLEBSIELLA PNEUMONIAE-ESBL 05/14/2017 9:25am 2016 9:44am Final PROVIDENCIA STUARTII 05/14/2017 9:25am 05/16/2017 9:44am Final Sputum Culture Sputum, Induced KLEBSIELLA PNEUMONIAE-ESBL 05/17/2017 11: 33am 05/20/2017 4:01pm Final PSEUDO FLUORESCENS/PUTIDA 05/17/2017 11:33am 05/20/2017 4:01pm Final Urine Culture Urine,[place] KLEBSIELLA PNEUMONIAE-ESBL 06/27/2017 3: 30pm 06/29/2017 8:24am Final Wound Culture Sacral ACINETOBACTER BAUMANNII/HAEMOL 06/28/2017 2:44pm 11:25am Final PSEUDO FLUORESCENS/PUTIDA 06/28/2017 2:44pm 07/02/2017 11:25am Final Sputum Culture Sputum, Expectorated Sputum PROTEUS MIRABILIS 06/28/2017 1: 15pm 07/01/2017 2:34pm Final PSEUDO FLUORESCENS/PUTIDA 06/28/2017 1:15pm 07/01/2017 2:34pm Final Blood Culture Blood NO GROWTH AFTER 5 DAYS, FINAL REPORT 07/01/2017 2:50pm 07/06/2017 2:59pm Final Wound Culture Foot, Left STAPHYLOCOCCUS AUREUS-MRSA 11/12/2017 10:05am 11/2017 10:12am Final Procedures Procedure Status Date Provider(s) RESPIRATORY VENTILATION, GREATER THAN 96 CONSECUTIVE HOURS Completed HAMMAD DEVINE MD TRANSFUSE NONAUT RED BLOOD CELLS IN PERIPH VEIN, PERC Completed 05/14/17 RUBEN VELEZ MD RESPIRATORY VENTILATION, GREATER THAN 96 CONSECUTIVE HOURS Completed TONY JAMESON MD Thoracentesis with ultrasound guidance Active 05/14/17 ROXY ELIZABETH MD Computed tomography of abdomen and pelvis with contrast Active 05/17/17 WALDEMAR BROUSSARD Computed tomography of chest with contrast Active 05/17/17 WALDEMAR BROUSSARD Ultrasound of chest including mediastinum Active 05/19/17 HOMER BREWSTER MD Ultrasound of chest including mediastinum Active 06/28/17 AMIRA TONEY MD Computed tomography of abdomen and pelvis with contrast Active 06/30/17 QUYNH GA MD Computed tomography of chest with contrast Active 06/30/17 QUYNH GA MD Encounters Encounter Location Arrival/Admit Date Discharge/Depart Date Attending Provider Departed Emergency Room [facility] 11/19/17 7:50am 11:05am GREGORY ESPINO MD Registered Clinic [facility] 11/17/17 11:30am ROXY ELIZABETH MD Registered Clinic [facility] 11/12/17 10:18am ROXY ELIZABETH MD Registered Clinic [facility] 10/01/17 1:00pm NONSTAFF Discharged Inpatient [facility] 06/27/17 5:18pm 07/03/17 10:15pm ROXY ELIZABETH MD Discharged Inpatient [facility] 05/14/17 10:44am 7:59pm ROXY ELIZABETH MD
[2017-12-25] MEDS ORDERED: ONDANSETRON HCL INJ 2 MG/ML VIAL IV STA (20:38)
[2017-12-25] MEDS ORDERED: PANTOPRAZOLE 40 MG 10ML VIAL IV STA (20:38)
[2017-12-25 20:56] LABS: BASOPHILS % 0.2 % (0.0-1.0); BILIRUBIN,URINE 1+ (NEGATIVE); CLARITY,URINE HAZY (CLEAR); COLOR,URINE YELLOW (YELLOW); EOSINOPHILS % 0.1 % (0.0-6.0); HEMATOCRIT 31.1 % (34.2-44.1); HEMOGLOBIN 9.9 g/dL (12.0-16.0); KETONES,URINE NEGATIVE (NEGATIVE); LEUKOCYTE ESTERASE ,URINE 2+ (NEGATIVE); LYMPHOCYTES # (AUTO) 3.2 (1.0-3.2); LYMPHOCYTES % 16.8 % (18.0-39.1); MEAN CORPUSCULAR HEMOGLOBIN 26.3 pg (28-32); MEAN CORPUSCULAR HGB CONC 31.8 g/dL (31-35); MEAN CORPUSCULAR VOLUME 82.5 fL (81-99); MONOCYTES # (AUTO) 0.7 (0.2-0.8); MONOCYTES % 3.5 % (4.4-11.3); NEUTROPHILS # (AUTO) 15.2 (2.1-6.9); NEUTROPHILS % 79.1 % (38.7-80.0); NITRITE,URINE NEGATIVE (NEGATIVE); PLATELET COUNT 310 x10e3/uL (140-360); PROTEIN,URINE DIPSTICK 2+ (NEGATIVE); RED BLOOD COUNT 3.77 x10e6/uL (3.6-5.1); RED CELL DISTRIBUTION WIDTH 17.1 % (11.7-14.4); URINE UROBILINOGEN 0.2 mg/dL (0.2 - 1)
[2017-12-25 20:59] LABS: INR 1.22; PROTHROMBIN TIME 14.5 seconds (11.9-14.5)
[2017-12-25 21:00] LABS: PARTIAL THROMBOPLASTIN TIME 34.9 seconds (23.8-35.5)
[2017-12-25] MEDS ORDERED: LISINOPRIL10 MG PO (21:04)
[2017-12-25 21:09] LABS: ALANINE AMINOTRANSFERASE 34 IU/L (0-55); ALBUMIN 3.1 g/dL (3.5-5.0); ALBUMIN/GLOBULIN RATIO 0.8 (0.8-2.0); ALKALINE PHOSPHATASE 127 IU/L (40-150); ANION GAP 13.7 mmol/L (8-16); BACTERIA,URINE MANY /HPF; BLOOD UREA NITROGEN 19 mg/dL (7-26); BUN/CREATININE RATIO 23 (6-25); CALCIUM 8.8 mg/dL (8.4-10.2); CARBON DIOXIDE 24 mmol/L (22-29); CHLORIDE 102 mmol/L (98-107); CREATINE KINASE 96 IU/L (29-168); CREATININE, SERUM 0.81 mg/dL (0.57-1.11); EPITHELIAL CELLS,URINE RARE /LPF; EST GLOMERULAR FILTRATION RATE > 60 ML/MIN (60-); GLUCOSE 165 mg/dL (74-118); POTASSIUM 4.7 mmol/L (3.5-5.1); SODIUM 135 mmol/L (136-145); YEAST,URINE MODERATE
[2017-12-25 21:10] LABS: LIPASE < 4 U/L (8-78)
[2017-12-25 21:17] LABS: B-TYPE NATRIURETIC PEPTIDE2 64.4 pg/mL (0-100)
[2017-12-25] MEDS ORDERED: DIATRIZOATE MEGL/DIATRIZOA SOD 30 ML BTL PO ONE (21:32)
--- NOTE | 2017-12-25 22:29 | Diagnostic Imaging Report ---
CHEST SINGLE (PORTABLE), 12/25/2017 8:38 PM Technique: CHEST SINGLE (PORTABLE) Comparison: 06/30/2017 Clinical history: Recent pneumonia, vomiting, distended abdomen Findings: See Impression Impression: 1. Lines/Tubes: Tracheostomy in place. Left PICC terminates over the expected peripheral subclavian vein. 2. Rotated radiograph with enlarged cardiomediastinal silhouette. 3. Right basilar opacity, favor atelectasis or consolidation with moderate pleural fluid. 3. Distended bowel loops seen over the upper abdomen. Signed by: Dr Crystal Keane MD on 12/25/2017 10:25 PM
[2017-12-25] MEDS ORDERED: PROMETHAZINE 12.5MG/ NACL 0.9% 12.5 MG/50 ML BAG IV ONE (22:30)
[2017-12-25] MEDS: PIPERACILLIN/TAZO 4.5 GM 100 ML IV SCH (23:46)
[2017-12-26] VITALS (70 sets, daily range): BP systolic 95–152; BP diastolic 43–81
[2017-12-26] MEDS ORDERED: BENZOCAINE/TETRACAINE/BUTAMBEN AERO SPRAY 56 GM CAN TOP ONE
--- NOTE | 2017-12-26 00:09 | Diagnostic Imaging Report ---
EXAM: CT ABDOMEN/PELVIS W DATE: 12/25/2017 8:38 PM INDICATION: \S\VOMITING, DISTENDED, EVAL FOR OBSTRUCTION \S\[id number] \S\[id number] COMPARISON: 05/17/2017 TECHNIQUE: The abdomen and pelvis were scanned using a multidetector helical scanner. Coronal and sagittal reformations were obtained. Routine protocol performed. IV Contrast: 100 ml Isovue 370 FINDINGS: Streak artifact from arm positioning, right hip arthroplasty, and motion artifact somewhat degrades evaluation. LOWER THORAX: Elevated right hemidiaphragm with diaphragmatic/liver eventration. Mild cardiomegaly. Small right pleural effusion with right basilar atelectasis/consolidation LIVER/BILIARY: No liver lesions. Mild central intrahepatic biliary ductal dilation with normal tapering; no extrahepatic biliary dilation GALLBLADDER: Unremarkable SPLEEN: Unremarkable PANCREAS: Unremarkable ADRENALS: No nodules KIDNEYS: Symmetric perfusion. Stable too small to characterize left renal hypodensities, likely cysts. No hydronephrosis. GI TRACT: Diffuse dilation of small and large bowel (for example cecum measures 10 cm). Moderate rectal stool loading. VESSELS: Moderate to severe atherosclerotic changes of aorta and branch vessels. Mild narrowing of the celiac and SMA and renal artery origins. PERITONEUM/RETROPERITONEUM: No free air or fluid LYMPH NODES: No lymphadenopathy REPRODUCTIVE ORGANS/BLADDER: Bladder is decompressed with a Pierre. Hysterectomy. SOFT TISSUES: Small tract of gas at the site of prior gastrostomy tube. BONES: Partially imaged right hip long stem arthroplasty, similar in alignment compared to 11/19/2017 radiographs. 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 Scoliosis with multilevel lumbar partial ankylosis IMPRESSION: 1. Ileus involving small and large bowel (cecum 10 cm). 2. Moderate to severe atherosclerotic changes of aorta and branch vessels. Signed by: Dr Crystal Keane MD on 12/26/2017 12:05 AM
[2017-12-26] MEDS ORDERED: SODIUM CHLORIDE 0.9% 500ML 500 ML IV ONE (00:30)
[2017-12-26] MEDS: VANCOMYCIN 1GM/NS 250 ML 250 ML IV SCH ×2 (00:30→13:00)
[2017-12-26] MEDS ORDERED: SODIUM CHLORIDE 0.9% 250ML 500 ML ONE (00:41)
[2017-12-26] MEDS ORDERED: SODIUM CHLORIDE 0.9% 1000ML 1,000 ML IV SCH (00:49)
[2017-12-26] MEDS ORDERED: PROMETHAZINE HCL (IM) 25 MG/ML VIAL IV PRN (01:00)
[2017-12-26] MEDS ORDERED: DEXTROSE 50% SYRINGE 50 ML IV PRN (01:00)
[2017-12-26] MEDS ORDERED: ONDANSETRON HCL INJ 2 MG/ML VIAL IV PRN (01:00)
[2017-12-26] MEDS ORDERED: PROMETHAZINE 12.5MG/ NACL 0.9% 12.5 MG/50 ML BAG IV PRN (01:15)
[2017-12-26] MEDS: ACETAMINOPHEN 1000 MG/100 ML IV PRN ×2 (02:19→20:55)
[2017-12-26] MEDS ORDERED: IOPAMIDOL 370 MG/ML 200 ML INFUS..BTL INJ ONE (03:19)
[2017-12-26] MEDS ORDERED: SODIUM CHLORIDE 0.9% 50ML 50 ML ONE (03:19)
[2017-12-26] MEDS ORDERED: CHLORHEXIDINE118 M1 PO (03:37)
[2017-12-26] MEDS ORDERED: EXCEDRIN MIGRA1 EAC1 PO (03:43)
[2017-12-26] MEDS ORDERED: NOVOLOG100 UNITS1 SQ (03:49)
[2017-12-26] MEDS: INSULIN REGULAR, HUMAN 100 UNIT/1 ML 3ML VIAL SQ SCH ×3 (06:00→18:00)
[2017-12-26] MEDS ORDERED: PIPERACILLIN/TAZO 4.5 GM 50 ML IV ONE (06:19)
[2017-12-26] MEDS: PIPERACILLIN/TAZO 4.5 GM 100 ML IV SCH ×3 (06:20→17:54)
[2017-12-26 08:03] LABS: BASOPHILS % 0.3 % (0.0-1.0); EOSINOPHILS # (AUTO) 0.4 (0.0-0.4); EOSINOPHILS % 2.5 % (0.0-6.0); HEMATOCRIT 25.1 % (34.2-44.1); LYMPHOCYTES # (AUTO) 3.8 (1.0-3.2); LYMPHOCYTES % 26.2 % (18.0-39.1); MEAN CORPUSCULAR HEMOGLOBIN 26.4 pg (28-32); MEAN CORPUSCULAR HGB CONC 31.9 g/dL (31-35); MEAN CORPUSCULAR VOLUME 82.8 fL (81-99); MONOCYTES # (AUTO) 0.9 (0.2-0.8); MONOCYTES % 6.4 % (4.4-11.3); NEUTROPHILS # (AUTO) 9.4 (2.1-6.9); NEUTROPHILS % 64.3 % (38.7-80.0); PLATELET COUNT 226 x10e3/uL (140-360); RED BLOOD COUNT 3.03 x10e6/uL (3.6-5.1); RED CELL DISTRIBUTION WIDTH 16.9 % (11.7-14.4)
[2017-12-26 08:23] LABS: ALANINE AMINOTRANSFERASE 26 IU/L (0-55); ALBUMIN 2.4 g/dL (3.5-5.0); ALBUMIN/GLOBULIN RATIO 0.8 (0.8-2.0); ALKALINE PHOSPHATASE 108 IU/L (40-150); ANION GAP 10.9 mmol/L (8-16); BLOOD UREA NITROGEN 18 mg/dL (7-26); BUN/CREATININE RATIO 28 (6-25); CALCIUM 8.5 mg/dL (8.4-10.2); CARBON DIOXIDE 24 mmol/L (22-29); CHLORIDE 107 mmol/L (98-107); CREATININE, SERUM 0.65 mg/dL (0.57-1.11); EST GLOMERULAR FILTRATION RATE > 60 ML/MIN (60-); GLUCOSE 108 mg/dL (74-118); POTASSIUM 3.9 mmol/L (3.5-5.1); SODIUM 138 mmol/L (136-145)
[2017-12-26 09:09] LABS: CREATINE KINASE MB 1.9 ng/mL (0-5.0)
[2017-12-26] MEDS ORDERED: LACTULOSE PEG PRN (09:15)
[2017-12-26] MEDS ORDERED: LACTULOSE SYRUP 20 GM/30 ML UDC PEG PRN (09:30)
[2017-12-26 09:57] LABS: THYROID STIMULATING HORMONE 0.501 uIU/mL (0.350-4.940)
[2017-12-26] MEDS: ALBUTEROL/IPRATROPIUM 3 ML NEB NEB SCH ×4 (11:00→23:12)
--- NOTE | 2017-12-26 11:21 | History and Physical ---
CHIEF COMPLAINT: Difficulty breathing. HISTORY OF PRESENT ILLNESS: This is a 72-year-old woman, who was transferred from a local prison to [facility] Emergency Room because of nausea, vomiting, and shortness of breath. The patient has a history of chronic respiratory failure and is actually on a ventilator via a tracheostomy tube. The patient has a chronic sacral wound. The patient has a past medical history of recurrent urinary tract infections with the presence of the following bacterial organisms: Proteus mirabilis, Pseudomonas aeruginosa, and Klebsiella pneumoniae. In the emergency room, the patient was found to have a white blood cell count of 19,100 with 79% segmented neutrophils. Also in the emergency room, the patient underwent a CT of the abdomen and pelvis with contrast that revealed findings consistent with small and large bowel ileus as well as moderate to severe atherosclerotic changes of the aorta and branch vessels. The patient also has moderate amount of rectal stool. Chest x-ray done in the emergency room revealed enlarged cardiomediastinal silhouette as well as right basilar opacity. Chest x-ray also revealed distended bowel loops. Moreover in the emergency room, the patient's urinalysis revealed 4+ blood, 2+ protein, 1+ bilirubin, 2+ leukocyte esterase, 11-20 red blood cells per high-power field, 6-10 white blood cells per high-power field, and many bacteria. Also, the patient was found to have Hemoccult-positive stools. The patient's influenza tests for A and B antigen were negative. In the emergency room, the patient was found to have BUN and creatinine of 18 and 0.65 respectively. The patient's B-type natriuretic peptide level was normal at 64. The patient was admitted for further evaluation and treatment. REVIEW OF SYSTEMS GENERAL: Patient has lost 15 to 20 pounds over the last few months, according to adult daughter. No fever or chills, but she has had altered mentation lately. HEENT: No headache. No vision changes. CARDIOVASCULAR: No chest pain. The patient has had worsening shortness of breath after her episode of nausea and vomiting yesterday. GI: Nausea and vomiting for a couple of days. No diarrhea. : The patient has a history of recurrent urinary tract infection. As previously stated, she has had Proteus mirabilis, Pseudomonas aeruginosa, and Klebsiella pneumoniae urinary tract infections. She does have an indwelling Pierre catheter. NEUROMUSCULAR: She is bedbound since 2008 because of a previous postoperative left hip infection. 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 ALLERGIES 1. NSAIDs. 2. MUSHROOMS. 3. PINEAPPLE. 4. STRAWBERRY. FAMILY HISTORY: Noncontributory. SOCIAL HISTORY: This woman is single. She lives in a local prison. Her adult daughter is very much involved in her healthcare needs. The patient is a former tobacco smoker. No history of alcohol use. SURGICAL HISTORY 1. Bilateral hip surgery. 2. History of left total hip replacement with subsequent infection that led to her chronic bedbound state since 2008. 3. Tracheostomy tube placement. 4. PEG tube placement. 5. PEG tube removal. 6. Right foot surgery. 7. Left total knee replacement. PAST MEDICAL HISTORY 1. Chronic respiratory failure (ventilator dependent). 2. 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 3. COPD. 4. Former tobacco smoker. 5. History of recurrent pneumonia. 6. History of recurrent urinary tract infection (Pseudomonas aeruginosa, Proteus mirabilis, and Klebsiella pneumoniae). 7. Stage-IV sacral decubitus ulcer. 8. Anemia secondary to chronic disease. 9. Lumbar disk disease. 10. Severe right knee degenerative joint disease. 11. Type-2 diabetes mellitus. 12. Hypertensive heart disease. 13. Depression. 14. Severe debility. 15. Anxiety disorder. MEDICATIONS 1. Acetaminophen with codeine every 6 hours p.r.n. pain. 2. Acetaminophen 650 mg per PEG every 4 hours p.r.n. fever. 3. Allopurinol 300 mg daily. 4. Aspirin 81 mg daily. 5. Excedrin Migraine [id number] 1 every 8 hours p.r.n. headache. 6. Bisacodyl 10 mg 1 per suppository daily. 7. Librium 25 mg nightly. 8. Famotidine 20 mg b.i.d. 9. Hydralazine 25 mg q.i.d. 10. NovoLog insulin sliding scale. 11. Ipratropium and albuterol nebulizer treatments every 4 hours as needed for shortness of breath and wheezing. 12. Lactobacillus acidophilus 1 per PEG daily. 13. Lactulose 20 g b.i.d. as needed for constipation. 14. Lisinopril 20 mg daily. 15. Lorazepam 0.5 mg every 3 hours. 16. Ondansetron 4 mg per mouth every 8 hours p.r.n. nausea and vomiting. 17. Risperdal 0.25 mg nightly. 18. Sertraline 50 mg nightly. 19. Tramadol 50 mg q.6 h. p.r.n. pain. 20. Trazodone 75 mg nightly. 21. Multivitamin 1 daily. PHYSICAL EXAMINATION GENERAL: She is asleep but arousable. Her adult daughter is at bedside. VITAL SIGNS: Blood pressure 124/48, pulse 42, temperature 96.2, respiratory rate 16. She is currently on the ventilator AC mode. Oxygen saturation is 100% on room air. Height is 5 feet 7 inches, and weight is 132 pounds. Calculated body mass index is 20. INTEGUMENT: Skin is warm and dry. The patient has slight pallor, no jaundice or diaphoresis. The patient has a stage-IV sacral decubitus ulcer. HEENT: Anicteric sclerae with moist mucous membranes. NECK: Supple. The patient has a tracheostomy tube in place, but she is currently on the ventilator. CARDIOVASCULAR: Distant heart sounds. Regular rate and rhythm. LUNGS: Crackles in bilateral bases. ABDOMEN: Soft. Previous PEG tube has been removed. EXTREMITIES: The patient has muscle wasting of the lower extremities. She has significant right knee joint bony deformity. NEUROLOGIC: She has right hemiparesis. The patient is also in a chronic bedbound state. DIAGNOSES 1. Sepsis secondary to right-sided pneumonia, likely gram-negative kerrie. 2. Ileus. 3. Sepsis secondary to urinary tract infection. 4. Xuows-ld-kpjotnp respiratory failure. 5. Stage-IV sacral decubitus ulcer. 6. Wzfgf-dn-rwpzgre anemia. 7. Hemoccult-positive stools. PLAN 1. Stop aspirin. 2. Stop heparin. 3. Follow hemoglobin and hematocrit. 4. [place] the patient's full code status. 5. Intravenous antibiotics. 6. Follow urine and blood cultures. 7. Will order wound care to the patient's stage-IV sacral decubitus ulcer. 8. Will ask speech therapy to do a bedside swallow evaluation. 9. Will order daily KUB to assess the progression of the ileus. 10. May consider stopping intravenous fluids since she has underlying diastolic heart failure. 11. Ventilator management as per the pulmonary team. 12. Overall poor prognosis. I spent 75 minutes in the care of this critical care patient. Job#: [id number] RAMIREZ SALAS
--- NOTE | 2017-12-26 12:03 | Diagnostic Imaging Report ---
PROCEDURE:X-RAY ABDOMEN - KUB COMPARISON:CT dated 12/25/17 INDICATIONS:ILEUS FINDINGS: There is a non-obstructed bowel-gas pattern. However, there is gaseous distention of bowel loops throughout the abdomen, especially transverse colon. Scoliosis of the lumbar spine with advanced degenerative changes. Right hip arthroplasty. Elevated right hemidiaphragm. Enlarged cardiac silhouette. CONCLUSION: Persistent gaseous distention of bowel loops throughout the abdomen, decreased when compared to CT dated 12/25/17. Dictated by: Roque Carlin M.D. on 12/26/2017 at 12:03 Electronically approved by: Roque Carlin M.D. on 12/26/2017 at 12:03
[2017-12-26 12:30] LABS: ABG PH 7.38 (7.31-7.41)
[2017-12-26 12:31] LABS: ABG HCO3 24 mmol/L (23-28); ABG PCO2 41 mmHg (41-51); ABG PO2 91 mmHg (80-105)
[2017-12-26] MEDS ORDERED: LACTULOSE SYRUP 20 GM/30 ML UDC NG SCH (17:00)
[2017-12-26 18:54] LABS: CREATINE KINASE MB 2.1 ng/mL (0-5.0)
[2017-12-26] MEDS ORDERED: HEPARIN SOD (PORCINE) 5,000 UNIT/ML VIAL SC SCH (21:00)
[2017-12-26] MEDS: MORPHINE SULFATE 2 MG/ML SYR IV PRN (21:39)
[2017-12-27] VITALS (65 sets, daily range): BP systolic 115–177; BP diastolic 50–72
[2017-12-27] MEDS: PIPERACILLIN/TAZO 4.5 GM 100 ML IV SCH ×4 (00:35→18:00)
[2017-12-27] MEDS: VANCOMYCIN 1GM/NS 250 ML 250 ML IV SCH ×2 (01:24→14:20)
[2017-12-27] MEDS: ALBUTEROL/IPRATROPIUM 3 ML NEB NEB SCH ×6 (03:15→23:25)
[2017-12-27] MEDS: INSULIN REGULAR, HUMAN 100 UNIT/1 ML 3ML VIAL SQ SCH ×4 (05:30→17:01)
--- NOTE | 2017-12-27 05:40 | Diagnostic Imaging Report ---
CHEST SINGLE (PORTABLE), 12/27/2017 5:00 AM Technique: CHEST SINGLE (PORTABLE) Comparison: 12/25/2017 Clinical history: Pneumonia, CHF Findings: See Impression Impression: 1. Lines/Tubes: Stable tracheostomy. Left PICC unchanged over the peripheral subclavian vein. 2. Persistent right basilar opacity, favor atelectasis/consolidation with pleural fluid. Signed by: Dr Crystal Keane MD on 12/27/2017 5:37 AM
--- NOTE | 2017-12-27 05:40 | Diagnostic Imaging Report ---
ABDOMEN-1VIEW (KUB) Clinical history: Ileus Technique: AP view abdomen Comparison: CT 12/25/2017 Findings: Hemidiaphragms are excluded from view. Bowel: No significant change in diffuse dilation of small and large bowel. Contrast from recent CT is seen in the colon. Other: Degenerative changes with abnormal curvature of the spine and partially imaged right hip arthroplasty. Vascular calcifications. Impression: Persistent ileus. Signed by: Dr Crystal Keane MD on 12/27/2017 5:37 AM
[2017-12-27 06:34] LABS: BASOPHILS % 0.3 % (0.0-1.0); EOSINOPHILS # (AUTO) 0.4 (0.0-0.4); EOSINOPHILS % 4.8 % (0.0-6.0); HEMATOCRIT 25.5 % (34.2-44.1); LYMPHOCYTES # (AUTO) 2.8 (1.0-3.2); LYMPHOCYTES % 32.3 % (18.0-39.1); MEAN CORPUSCULAR HEMOGLOBIN 26.4 pg (28-32); MEAN CORPUSCULAR HGB CONC 31.4 g/dL (31-35); MEAN CORPUSCULAR VOLUME 84.2 fL (81-99); MONOCYTES # (AUTO) 0.5 (0.2-0.8); MONOCYTES % 6.2 % (4.4-11.3); NEUTROPHILS # (AUTO) 4.9 (2.1-6.9); NEUTROPHILS % 56.2 % (38.7-80.0); PLATELET COUNT 233 x10e3/uL (140-360); RED BLOOD COUNT 3.03 x10e6/uL (3.6-5.1); RED CELL DISTRIBUTION WIDTH 16.9 % (11.7-14.4)
[2017-12-27 06:58] LABS: ALANINE AMINOTRANSFERASE 20 IU/L (0-55); ALBUMIN 2.4 g/dL (3.5-5.0); ALBUMIN/GLOBULIN RATIO 0.8 (0.8-2.0); ALKALINE PHOSPHATASE 93 IU/L (40-150); ANION GAP 9.5 mmol/L (8-16); BLOOD UREA NITROGEN 10 mg/dL (7-26); BUN/CREATININE RATIO 17 (6-25); CALCIUM 8.6 mg/dL (8.4-10.2); CARBON DIOXIDE 22 mmol/L (22-29); CHLORIDE 111 mmol/L (98-107); CREATININE, SERUM 0.59 mg/dL (0.57-1.11); EST GLOMERULAR FILTRATION RATE > 60 ML/MIN (60-); GLUCOSE 82 mg/dL (74-118); POTASSIUM 3.5 mmol/L (3.5-5.1); SODIUM 139 mmol/L (136-145)
[2017-12-27] MEDS: PANTOPRAZOLE SOD 40 MG TABEC PO SCH (07:30)
[2017-12-27] MEDS: ALLOPURINOL 300 MG TAB PEG SCH (08:35)
[2017-12-27] MEDS ORDERED: ASPIRIN 81 MG CHEW TAB PEG SCH (09:00)
[2017-12-27] MEDS: MORPHINE SULFATE 2 MG/ML SYR IV PRN ×2 (12:17→19:25)
[2017-12-27] MEDS: LORAZEPAM 1 MG TAB PO SCH ×2 (18:00→23:45)
[2017-12-28] VITALS (47 sets, daily range): BP systolic 113–171; BP diastolic 47–80
[2017-12-28] MEDS: VANCOMYCIN 1GM/NS 250 ML 250 ML IV SCH ×2 (01:27→13:15)
[2017-12-28] MEDS: ALBUTEROL/IPRATROPIUM 3 ML NEB NEB SCH ×6 (02:48→22:46)
[2017-12-28] MEDS: INSULIN REGULAR, HUMAN 100 UNIT/1 ML 3ML VIAL SQ SCH ×5 (06:00→21:00)
[2017-12-28 06:21] LABS: BASOPHILS # (AUTO) 0.1 (0.0-0.1); BASOPHILS % 0.4 % (0.0-1.0); EOSINOPHILS # (AUTO) 0.6 (0.0-0.4); EOSINOPHILS % 4.3 % (0.0-6.0); HEMOGLOBIN 8.9 g/dL (12.0-16.0); LYMPHOCYTES # (AUTO) 2.9 (1.0-3.2); LYMPHOCYTES % 22.8 % (18.0-39.1); MEAN CORPUSCULAR HEMOGLOBIN 26.1 pg (28-32); MEAN CORPUSCULAR HGB CONC 31.8 g/dL (31-35); MEAN CORPUSCULAR VOLUME 82.1 fL (81-99); MONOCYTES # (AUTO) 0.7 (0.2-0.8); MONOCYTES % 5.7 % (4.4-11.3); NEUTROPHILS # (AUTO) 8.6 (2.1-6.9); NEUTROPHILS % 66.3 % (38.7-80.0); PLATELET COUNT 272 x10e3/uL (140-360); RED BLOOD COUNT 3.41 x10e6/uL (3.6-5.1); RED CELL DISTRIBUTION WIDTH 16.8 % (11.7-14.4)
[2017-12-28] MEDS: PIPERACILLIN/TAZO 4.5 GM 100 ML IV SCH ×3 (06:36→12:00)
[2017-12-28] MEDS: LORAZEPAM 1 MG TAB PO SCH ×4 (06:36→23:55)
[2017-12-28 06:48] LABS: ALANINE AMINOTRANSFERASE 17 IU/L (0-55); ALBUMIN 2.4 g/dL (3.5-5.0); ALBUMIN/GLOBULIN RATIO 0.7 (0.8-2.0); ALKALINE PHOSPHATASE 103 IU/L (40-150); ANION GAP 11.6 mmol/L (8-16); BLOOD UREA NITROGEN 7 mg/dL (7-26); BUN/CREATININE RATIO 12 (6-25); CALCIUM 8.9 mg/dL (8.4-10.2); CARBON DIOXIDE 25 mmol/L (22-29); CHLORIDE 111 mmol/L (98-107); CREATININE, SERUM 0.57 mg/dL (0.57-1.11); EST GLOMERULAR FILTRATION RATE > 60 ML/MIN (60-); GLUCOSE 81 mg/dL (74-118); POTASSIUM 3.6 mmol/L (3.5-5.1); SODIUM 144 mmol/L (136-145)
[2017-12-28] MEDS: PANTOPRAZOLE SOD 40 MG TABEC PO SCH (07:30)
[2017-12-28] MEDS: MORPHINE SULFATE 2 MG/ML SYR IV PRN (08:33)
[2017-12-28] MEDS: ALLOPURINOL 300 MG TAB PEG SCH (08:38)
[2017-12-28] MEDS: METRONIDAZOLE 500MG/NS 100ML 100 ML IV SCH (23:17)
[2017-12-28] MEDS: CEFEPIME HCL 1 GM VIAL IV SCH (23:17)
[2017-12-29] VITALS (37 sets, daily range): BP systolic 96–177; BP diastolic 48–96
[2017-12-29] MEDS: VANCOMYCIN 1GM/NS 250 ML 250 ML IV SCH ×2 (00:37→12:55)
--- NOTE | 2017-12-29 00:50 | Consultation ---
DATE OF CONSULTATION: December 28, 2017 REASON FOR CONSULTATION: HISTORY OF PRESENT ILLNESS: Ms. Pérez is a 72-year-old female, transferred from residential to [facility] for nausea, vomiting, shortness of breath, altered mental status. The patient who was on a ventilator via a tracheostomy with getting progressively worse. She does have chronic decubitus ulcer in sacral area. She has history of recurrent UTI, history of recurrent infections. She is colonized with multidrug-resistant including Proteus mirabilis, Pseudomonas aeruginosa, and Klebsiella pneumonia with multidrug resistant. The patient came to emergency room and eventually, she was evaluated. Her white count was 19.1. CAT scan of abdomen and pelvis showed small large bowel ileus, as well as ffxphawl-qu-whjudi atherosclerosis disease. Patient had a chest x-ray showed cardiomegaly. Right basal opacity. Patient was admitted. Infectious disease was consulted today for recommendation to administer antibiotic. Patient is not able to provide meaningful information. PAST MEDICAL HISTORY: She has respiratory failure, history of transverse myelitis resulting in right-sided hemiplegia, COPD, she used to be a smoker, history of recurrent pneumonia, history of UTI, multidrug-resistant stage-4 decubitus ulcer, anemia, lumbar disk disease, severe right knee degenerative joint disease, diabetes mellitus type 2, hypertension, coronary artery disease, depression, debilitated, and anxiety. PAST SURGICAL HISTORY: Bilateral hip surgery, left total hip replacement with infection led to bedbound since 2008, tracheostomy, PEG tube placement, PEG tube removal, right foot surgery, left total knee replacement. MEDICATIONS: She is on acetaminophen with codeine, Reglan, acetaminophen, allopurinol, aspirin, Excedrin, Librium, hydralazine, insulin, lactobacillus, Risperdal, sertraline, tramadol. REVIEW OF SYSTEMS: Could not be obtained. PHYSICAL EXAMINATION GENERAL: She is lethargic. VITALS: Stable currently afebrile. Temperature of 99.2, earlier was 100.8. Heart rate 72, respirations 17. HEENT: Normocephalic. NECK: Supple. CHEST: Few crackles, bilateral coarse. ABDOMEN: Soft. Bowel sounds present. No tenderness. EXTREMITIES: No edema. Decubitus ulcer, reviewed, stage 2, stage 4. LABORATORY DATA: Blood cultures still pending. White count is 12.8, hemoglobin 8.9. Her sodium 144, potassium 3.6, creatinine 0.57. MEDICATIONS: She is currently on vancomycin IV. She is on Zosyn. Influenza, sepsis, are negative. IMPRESSION: Sepsis in a patient coming with shortness of breath. I am concerned about early colitis. The patient does have an ileus. I am also concerned about aspiration pneumonia. I would recommend to change antibiotic to vancomycin, cefepime, and Flagyl. Observe for diarrhea. Recheck complete blood count. Recheck chemistry panel. Wound consultation. Also concerned about aspiration pneumonia. Will see how she will do clinically with the above choice of antibiotic. Recheck complete blood count. Recheck chemistry panel. We may have to adjust it. Also, would like to follow up on this ileus. Will get another kidney, ureter, bladder ultrasound. Other medical problems mentioned above, chronic respiratory failure, history of transverse myelitis, history of chronic obstructive pulmonary disease, history of smoking, history of diabetes mellitus, history of severe osteoarthritis, multiple surgeries. Will follow with you. Job#: [id number] CQ
[2017-12-29] MEDS: ALBUTEROL/IPRATROPIUM 3 ML NEB NEB SCH ×6 (02:28→23:30)
[2017-12-29] MEDS: METRONIDAZOLE 500MG/NS 100ML 100 ML IV SCH ×3 (05:36→22:44)
[2017-12-29] MEDS: CEFEPIME HCL 1 GM VIAL IV SCH ×3 (05:36→22:44)
[2017-12-29] MEDS: LORAZEPAM 1 MG TAB PO SCH ×4 (05:36→22:53)
[2017-12-29 06:23] LABS: BASOPHILS % 0.3 % (0.0-1.0); EOSINOPHILS # (AUTO) 0.5 (0.0-0.4); EOSINOPHILS % 4.1 % (0.0-6.0); HEMATOCRIT 29.3 % (34.2-44.1); LYMPHOCYTES # (AUTO) 1.8 (1.0-3.2); LYMPHOCYTES % 16.6 % (18.0-39.1); MEAN CORPUSCULAR HGB CONC 30.7 g/dL (31-35); MEAN CORPUSCULAR VOLUME 84.7 fL (81-99); MONOCYTES # (AUTO) 0.6 (0.2-0.8); MONOCYTES % 5.4 % (4.4-11.3); NEUTROPHILS # (AUTO) 8.1 (2.1-6.9); NEUTROPHILS % 73.1 % (38.7-80.0); PLATELET COUNT 273 x10e3/uL (140-360); RED BLOOD COUNT 3.46 x10e6/uL (3.6-5.1); RED CELL DISTRIBUTION WIDTH 16.7 % (11.7-14.4)
--- NOTE | 2017-12-29 06:28 | Diagnostic Imaging Report ---
CHEST SINGLE (PORTABLE), 12/29/2017 5:02 AM Technique: CHEST SINGLE (PORTABLE) Comparison: 12/27/2017 Clinical history: Pneumonia Findings: See Impression Impression: 1. Lines/Tubes: Stable tracheostomy. Left PICC unchanged over the peripheral subclavian vein. 2. Eventration of the right hemidiaphragm. Persistent right basilar opacity, favor atelectasis/consolidation with pleural fluid. 3. New left basilar atelectasis or aspiration/consolidation. Signed by: Dr Crystal Keane MD on 12/29/2017 6:24 AM
[2017-12-29 06:46] LABS: ANION GAP 10.7 mmol/L (8-16); BLOOD UREA NITROGEN 5 mg/dL (7-26); BUN/CREATININE RATIO 9 (6-25); CALCIUM 9.1 mg/dL (8.4-10.2); CARBON DIOXIDE 25 mmol/L (22-29); CHLORIDE 110 mmol/L (98-107); CREATININE, SERUM 0.55 mg/dL (0.57-1.11); EST GLOMERULAR FILTRATION RATE > 60 ML/MIN (60-); GLUCOSE 128 mg/dL (74-118); POTASSIUM 3.7 mmol/L (3.5-5.1); SODIUM 142 mmol/L (136-145)
[2017-12-29] MEDS: PANTOPRAZOLE SOD 40 MG TABEC PO SCH (07:30)
[2017-12-29] MEDS: INSULIN REGULAR, HUMAN 100 UNIT/1 ML 3ML VIAL SQ SCH ×4 (07:30→21:00)
[2017-12-29] MEDS: ALLOPURINOL 300 MG TAB PEG SCH (08:31)
--- NOTE | 2017-12-29 16:27 | Progress Note ---
DATE: Ms. Pérez remains very ill in the ICU. No new complaints. Her laboratory data was reviewed. Her chart was reviewed. OBJECTIVE VITAL SIGNS: Temperature 99.4, heart rate 58, blood pressure 110/53. HEENT: Normocephalic. NECK: Supple. CHEST: A few rhonchi bilaterally. HEART: S1 and S2, no murmur. ABDOMEN: Soft. Bowel sounds present. EXTREMITIES: No edema. Her sputum is showing gram-negative rods. Her white count is 11.11, hemoglobin 9, sodium 142, potassium 3.7, creatinine 0.5. Her chest x-ray showing right lung opacities. Her CT of her abdomen and pelvis showed ileus. IMPRESSION 1. Pneumonia. 2. Colitis. 3. History of transverse myelitis with right side hemiplegia. 4. History of chronic obstructive pulmonary disease. 5. History of decubitus ulcer. PLAN: She is currently on cefepime, metronidazole and vancomycin. The plan is to continue with the same. She will probably need LTAC. Will follow. Job#: [id number]
[2017-12-30] VITALS (24 sets, daily range): BP systolic 116–172; BP diastolic 54–75
[2017-12-30] MEDS: VANCOMYCIN 1GM/NS 250 ML 250 ML IV SCH ×2 (01:00→13:14)
[2017-12-30] MEDS: ALBUTEROL/IPRATROPIUM 3 ML NEB NEB SCH ×3 (03:45→10:50)
[2017-12-30 05:20] LABS: BASOPHILS % 0.4 % (0.0-1.0); EOSINOPHILS # (AUTO) 0.2 (0.0-0.4); EOSINOPHILS % 1.5 % (0.0-6.0); HEMATOCRIT 26.6 % (34.2-44.1); HEMOGLOBIN 8.5 g/dL (12.0-16.0); LYMPHOCYTES # (AUTO) 2.4 (1.0-3.2); LYMPHOCYTES % 22.6 % (18.0-39.1); MEAN CORPUSCULAR HEMOGLOBIN 26.1 pg (28-32); MONOCYTES # (AUTO) 0.8 (0.2-0.8); MONOCYTES % 7.5 % (4.4-11.3); NEUTROPHILS % 67.6 % (38.7-80.0); PLATELET COUNT 283 x10e3/uL (140-360); RED BLOOD COUNT 3.26 x10e6/uL (3.6-5.1); RED CELL DISTRIBUTION WIDTH 16.8 % (11.7-14.4)
[2017-12-30 05:25] LABS: MEAN CORPUSCULAR VOLUME 81.6 fL (81-99)
[2017-12-30 05:41] LABS: ANION GAP 10.2 mmol/L (8-16); BLOOD UREA NITROGEN 9 mg/dL (7-26); BUN/CREATININE RATIO 11 (6-25); CALCIUM 8.6 mg/dL (8.4-10.2); CARBON DIOXIDE 23 mmol/L (22-29); CHLORIDE 111 mmol/L (98-107); CREATININE, SERUM 0.82 mg/dL (0.57-1.11); EST GLOMERULAR FILTRATION RATE > 60 ML/MIN (60-); GLUCOSE 99 mg/dL (74-118); POTASSIUM 3.2 mmol/L (3.5-5.1); SODIUM 141 mmol/L (136-145)
[2017-12-30] MEDS: CEFEPIME HCL 1 GM VIAL IV SCH ×2 (06:25→13:14)
[2017-12-30] MEDS: LORAZEPAM 1 MG TAB PO SCH ×2 (06:25→11:02)
[2017-12-30] MEDS: INSULIN REGULAR, HUMAN 100 UNIT/1 ML 3ML VIAL SQ SCH ×2 (06:25→11:02)
[2017-12-30] MEDS: METRONIDAZOLE 500MG/NS 100ML 100 ML IV SCH ×2 (06:25→13:14)
[2017-12-30] MEDS: ALLOPURINOL 300 MG TAB PEG SCH (07:12)
[2017-12-30] MEDS: PANTOPRAZOLE SOD 40 MG TABEC PO SCH (07:12)
[2017-12-30] MEDS ORDERED: POTASSIUM CHLORIDE 20 MEQ TAB CR PO ONE (10:20)
--- NOTE | 2017-12-30 12:03 | Diagnostic Imaging Report ---
PROCEDURE:X-RAY MODIFIED BARIUM SWALLOW COMPARISON:None. INDICATIONS:Vomiting. Ventilator dependent. DISCUSSION:Fluoroscopic examination was performed in conjunction with speech pathology, during swallowing of a variety of thin and thick liquid consistencies. CONCLUSION: No penetration or aspiration. Please see the report from speech pathology for complete details. Dictated by: Nikos Mcneal M.D. on 12/30/2017 at 12:03 Electronically approved by: Nikos Mcneal M.D. on 12/30/2017 at 12:03
--- NOTE | 2017-12-30 13:07 | Diagnostic Imaging Report ---
EXAM: CHEST SINGLE (PORTABLE), AP 1 view INDICATION: Trach COMPARISON: AP view of the chest December 29, 2017 FINDINGS: LINES/TUBES: Stable appearance of tracheostomy and left midline catheter. LUNGS: Right lower lobe atelectasis versus consolidation. Mild left lower lobe atelectasis. PLEURA: Large right pleural effusion. HEART AND MEDIASTINUM: Limited evaluation secondary to rotation. BONES AND SOFT TISSUES: No acute findings. IMPRESSION: No significant interval change given rotation. Signed by: Dr. Zoe Gracia M.D. on 12/30/2017 6:21 AM
[2017-12-30] MEDS ORDERED: METRONIDAZOLE 250 MG TAB PO SCH (22:00)
[2017-12-31] MEDS ORDERED: VANCOMYCIN 1GM/NS 250 ML 250 ML IV SCH (09:00)
== END 2017-12-30 16:15 | DRG 871 ==
LOC: ER 20:16 → ERHOLD 12-26 00:56 → ICU 12-26 01:35
PROC: 5A1945Z Respiratory Ventilation, 24-96 Consecutive Hours (ICD-10-PCS; principal; 2017-12-26)
DX: A41.89 Other specified sepsis (principal); J96.20 Acute and chronic respiratory failure, unspecified whether with hypoxia or hypercapnia; J69.0 Pneumonitis due to inhalation of food and vomit; Z99.11 Dependence on respirator [ventilator] status; L89.154 Pressure ulcer of sacral region, stage 4; G81.91 Hemiplegia, unspecified affecting right dominant side; D62 Acute posthemorrhagic anemia; J44.0 Chronic obstructive pulmonary disease with (acute) lower respiratory infection; K56.7 Ileus, unspecified; N39.0 Urinary tract infection, site not specified; E87.6 Hypokalemia; I25.10 Atherosclerotic heart disease of native coronary artery without angina pectoris; K52.9 Noninfective gastroenteritis and colitis, unspecified; Z86.61 Personal history of infections of the central nervous system; Z74.01 Bed confinement status; Z87.891 Personal history of nicotine dependence
CPT/HCPCS: 36415; 36600; 71045; 74018; 74177; 74230; 80048; 80053; 80202; 81001; 82270; 82550; 82553; 82805; 82948; 83605; 83690; 83735; 83880; 84436; 84443; 84479; 84484; 85025; 85610; 85730; 86850; 86870; 86880; 86900; 86905; 87040; 87070; 87086; 87186; 87205; 87400; 93005; 93306; 94002; 94003; 94640; 96361; 96372; 97139; 99001; 99284; J0692; J2270; J2405; J2543; J2550; J3370; J7030; J7050; Q9967